=== PATIENT | female | born 2000 | race Caucasian/White ===

== ENCOUNTER 2020-08-06 20:35 | Emergency (ER) | payer BC ==
[~2020-08-06] VITALS: Ht 160 cm; Wt 88.9 kg
[2020-08-06] MEDS ORDERED: SODIUM CHLORIDE FLUSH 10ML SYR IVF ONE (22:00)
[2020-08-06] MEDS ORDERED: SODIUM CHLORIDE 0.9% 1,000ML IVBOLUS ONE (22:00)
[2020-08-06 22:21] LABS: MICROSCOPIC INDICATED
[2020-08-06 22:45] LABS: BASOPHILS % (AUTO) 1 % (0-1); EOSINOPHILS % (AUTO) 2 % (1-7); LYMPHOCYTES % (AUTO) 30 % (22-44); MEAN CORPUSCULAR HEMOGLOBIN 29.6 pg (27.0-34.8); MEAN CORPUSCULAR HGB CONC 34.2 g/dL (32.4-35.8); MONOCYTES % (AUTO) 5 % (2-9); NEUTROPHILS % (AUTO) 62 % (42-75); PLATELET COUNT 358 x10^3/uL (130-400); RED BLOOD COUNT 4.48 x10^6/uL (3.82-5.3); RED CELL DISTRIBUTION WIDTH 14.2 % (9.6-15.2)
[2020-08-06 22:48] LABS: MD NO
[2020-08-06 22:53] LABS: ANION GAP 10 mmol/L (5-15); CALCIUM 8.3 mg/dL (8.5-10.1); CHLORIDE 108 mmol/L (98-107)
[2020-08-06 23:20] VITALS: BP 94/62
== END 2020-08-06 23:55 | disposition home or self-care (01) ==
LOC: EDBD 20:35 → ED 22:59
DX: O03.9 Complete or unspecified spontaneous abortion without complication (principal); R00.0 Tachycardia, unspecified; Z87.891 Personal history of nicotine dependence; Z3A.01 Less than 8 weeks gestation of pregnancy
CPT/HCPCS: 36415; 76830; 80048; 81001; 82040; 84702; 85025; 86901; 87086; 96360; 99284; J7030

== ENCOUNTER 2021-01-23 16:16 | Emergency (ER) | payer BC, OTHER ==
[~2021-01-23] VITALS: Ht 160 cm; Wt 91.5 kg
[2021-01-23 16:37] VITALS: BP 109/60
== END 2021-01-23 18:23 | disposition left against medical advice (07) ==
LOC: ED 16:30
DX: O26.891 Other specified pregnancy related conditions, first trimester (principal); R19.7 Diarrhea, unspecified; Z3A.01 Less than 8 weeks gestation of pregnancy
CPT/HCPCS: 99281

== ENCOUNTER 2021-01-29 16:55 | Emergency (ER) | payer BC ==
[~2021-01-29] VITALS: Ht 160 cm; Wt 91.8 kg
[2021-01-29 17:08] VITALS: BP 127/78
--- NOTE | 2021-01-29 17:54 | NUR ---
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
--- NOTE | 2021-01-29 18:09 | NUR ---
PT STATES SHE "HAD A GUSH OF BLEEDING" THIS AFTERNOON, SCANT BLOOD CURRENTLY. PT DENIES ANY CRAMPING. STATES THIS IS D/T HX OF ECTOPIC & MISCARRIAGES, UNABLE TO CARRY PAST 6 WEEKS. AT BS. U/S AT BS C RN PRESENT.
[2021-01-29 18:15] LABS: MICROSCOPIC NOT IND
--- NOTE | 2021-01-29 18:19 | NUR ---
u/s completed. family at bs. denies any needs. will ctm.
[2021-01-29 18:57] LABS: ANION GAP 6 mmol/L (5-15); CALCIUM 8.6 mg/dL (8.5-10.1); CHLORIDE 108 mmol/L (98-107)
[2021-01-29 18:58] LABS: MEAN CORPUSCULAR HEMOGLOBIN 30.1 pg (27.0-34.8); MEAN CORPUSCULAR HGB CONC 34.3 g/dL (32.4-35.8); MEAN PLATELET VOLUME 7.8 fL (7.4-10.4); PLATELET COUNT 386 x10^3/uL (130-400); RED CELL DISTRIBUTION WIDTH 13.3 % (9.6-15.2)
[2021-01-29 19:17] LABS: ALANINE AMINOTRANSFERASE 18 U/L (12-78); ALKALINE PHOSPHATASE 82 U/L (45-117); BILIRUBIN,TOTAL 0.4 mg/dL (0.2-1.0); CREATININE 0.46 mg/dL (0.55-1.02); TOTAL PROTEIN 7.6 g/dL (6.4-8.2)
[2021-01-29 19:30] LABS: BASOS#(MANUAL) 0.13 x10^3/uL (0-0.1); BASOS% (MANUAL) 1 % (0-1); EOS% (MANUAL) 4 % (1-7); LYMPH#(MANUAL) 5.17 x10^3/uL (1-3.4); LYMPHS% (MANUAL) 41 % (22-44); MONOS#(MANUAL) 0.76 x10^3/uL (0.3-2.7); MONOS% (MANUAL) 6 % (2-9); SEG#(MANUAL) 6.05 x10^3/uL (1.8-6.8); SEGS% (MANUAL) 48 % (42-75)
[2021-01-29 19:31] LABS: <PLATELET ESTIMATE> ADEQUATE; <PLT MORPHOLOGY> NORMAL PLT MORPH; <RBC MORPHOLOGY> NORMAL
== END 2021-01-29 19:41 | disposition home or self-care (01) ==
LOC: ED 17:25
DX: O20.0 Threatened abortion (principal); Z3A.01 Less than 8 weeks gestation of pregnancy
CPT/HCPCS: 36415; 76801; 80053; 81003; 84702; 85025; 86901; 99284